=== PATIENT | female | born 1935 | race Caucasian/White ===

== ENCOUNTER 2018-02-24 18:41 | Inpatient (IN) | payer MEDICARE, BC ==
[~2018-02-24] VITALS: Ht 147.3 cm; Wt 55.3 kg
[~2018-02-24 18:41] MED LIST: ACLI400A2 INH; ASPI-496 PO; LEVO50TA5 PO; LEVO750T26 PO; LOSA100T7 PO; MAGN71.5 PO; NAPH1POW2 PO; NAPR-685 PO
[2018-02-24] MEDS ORDERED: SODIUM CHLORIDE 0.9% 1,000ML IVBOLUS ONE ×2 (19:00→19:30)
[2018-02-24] MEDS ORDERED: SODIUM CHLORIDE FLUSH 10ML SYR IVF ONE (19:00)
[2018-02-24 19:07] LABS: BASOPHILS # (AUTO) 0.03 x10^3/uL (0-0.1); BASOPHILS % (AUTO) 0 % (0-1); EOSINOPHILS # (AUTO) 0.01 x10^3/uL (0-0.4); EOSINOPHILS % (AUTO) 0 % (1-7); LYMPHOCYTES # (AUTO) 1.55 x10^3/uL (1-3.4); LYMPHOCYTES % (AUTO) 10 % (22-44); MD NO; MEAN CORPUSCULAR HGB CONC 33.3 g/dL (32.4-35.8); MEAN CORPUSCULAR VOLUME 93.1 fL (80-100); MONOCYTES # (AUTO) 0.14 x10^3/uL (0.2-0.8); MONOCYTES % (AUTO) 1 % (2-9); NEUTROPHILS # (AUTO) 13.32 x10^3/uL (1.8-6.8); NEUTROPHILS % (AUTO) 89 % (42-75); PLATELET COUNT 226 x10^3/uL (130-400); RED BLOOD COUNT 5.83 x10^6/uL (3.82-5.3)
[2018-02-24 19:20] LABS: ALANINE AMINOTRANSFERASE 19 U/L (12-78); ANION GAP 16 mmol/L (5-15); CALCIUM 10.8 mg/dL (8.5-10.1); CHLORIDE 98 mmol/L (98-107); CREATININE 1.76 mg/dL (0.55-1.02)
[2018-02-24 19:22] LABS: ALKALINE PHOSPHATASE 74 U/L (45-117); BILIRUBIN,TOTAL 0.7 mg/dL (0.2-1.0); TOTAL PROTEIN 9.3 g/dL (6.4-8.2)
[2018-02-24 19:33] LABS: TROPONIN I < 0.015 ng/mL (0.000-0.045)
[2018-02-24] MEDS ORDERED: OMNIPAQUE 350 MG/ML, 100ML BOTTLE ONE (19:59)
[2018-02-24 20:34] LABS: MICROSCOPIC NOT IND
[2018-02-24 20:37] LABS: CULTURE INDICATED? NO
[2018-02-24] MEDS ORDERED: POTASSIUM CHLORIDE 20 MEQ in SODIUM CHLORIDE 0.9% 1,000 ML IV ONE (20:44)
[2018-02-24] MEDS ORDERED: MORPHINE SULFATE 4 MG/ML, 1ML IVPush PRN (21:00)
[2018-02-24] MEDS ORDERED: MIDAZOLAM 1 MG/ML, 2ML ONE ×2 (21:07→22:52)
[2018-02-24] MEDS ORDERED: FENTANYL PF 250 MCG/5ML ONE (21:07)
[2018-02-24] MEDS ORDERED: LIDOCAINE-MPF 2% ,5ML ONE (21:08)
[2018-02-24] MEDS ORDERED: PROPOFOL 10 MG/ML, 20ML ONE (21:08)
[2018-02-24] MEDS ORDERED: ROCURONIUM 10MG/ML,5ML ONE (21:09)
[2018-02-24] MEDS ORDERED: CEFOTETAN PMX 2GM/50ML 50 ML ONE (21:10)
[2018-02-24] MEDS ORDERED: DEXAMETHASONE 4 MG/ML, 1ML ONE ×2 (21:10)
[2018-02-24] MEDS ORDERED: METOPROLOL 1 MG/ML, 5ML ONE (21:25)
[2018-02-24] MEDS ORDERED: ONDANSETRON 2MG/ML, 2ML ONE (21:25)
[2018-02-24] MEDS ORDERED: SUGAMMADEX 200 MG/2 ML IVPush ONE (22:20)
[2018-02-24] MEDS ORDERED: MEPERIDINE/PF 25MG/0.5ML IVPush PRN (22:30)
[2018-02-24] MEDS ORDERED: HYDROmorphone 1 MG/ML, 1ML IV PRN (22:30)
[2018-02-24] MEDS ORDERED: FENTANYL PF 100 MCG/2ML IV PRN (22:30)
[2018-02-24] MEDS ORDERED: PROMETHAZINE 25 MG/ML, 1ML IV PRN (22:30)
[2018-02-24] MEDS ORDERED: OXYcodone 5 MG/5 ML ORAL.SOL UDC PO PRN (22:30)
[2018-02-24] MEDS ORDERED: hydrALAzine 20 MG/ML, 1ML IV PRN (22:30)
[2018-02-24] MEDS ORDERED: LABETALOL 5MG/ML, 20ML IV PRN (22:30)
[2018-02-24] MEDS ORDERED: ALBUTEROL SULFATE 2.5 MG/3 ML NPPB PRN (22:30)
[2018-02-24] MEDS ORDERED: HALOPERIDOL 5 MG/ML IV PRN (22:30)
[2018-02-24] MEDS ORDERED: LACTATED RINGERS 1,000 ML IV SCH (23:45)
[2018-02-24] MEDS ORDERED: MIDAZOLAM HCL 25 MG in SODIUM CHLORIDE 0.9% 245 ML IV PRN (23:45)
[2018-02-24] MEDS ORDERED: ONDANSETRON 2MG/ML, 2ML IV PRN (23:45)
[2018-02-24] MEDS ORDERED: SODIUM CHLORIDE 0.9%, 500ML IV PRN (23:45)
[2018-02-24] MEDS ORDERED: morphine SULFATE 10 MG/ML, 1ML IV PRN (23:45)
[2018-02-24] MEDS ORDERED: FENTANYL PF 2,500 MCG in SODIUM CHLORIDE 0.9% 200 ML IV PRN (23:45)
[2018-02-25] MEDS ORDERED: VECURONIUM 50 MG in SODIUM CHLORIDE 0.9% 250 ML IV PRN (01:30)
[2018-02-25] MEDS ORDERED: MIDAZOLAM HCL 25 MG in SODIUM CHLORIDE 0.9% 245 ML IV PRN (01:30)
[2018-02-25] MEDS ORDERED: FENTANYL PF 2,500 MCG in SODIUM CHLORIDE 0.9% 200 ML IV PRN (01:30)
[2018-02-25] MEDS ORDERED: VECURONIUM 10 MG IVPush ONE (01:30)
[2018-02-25] MEDS ORDERED: VECURONIUM 10 MG ONE (01:32)
[2018-02-25] MEDS ORDERED: SODIUM BICARB 8.4%, 50ML SYRINGE ONE ×2 (01:55→03:15)
[2018-02-25] MEDS ORDERED: ALBUTEROL/IPRATROPIUM 2.5MG/0.5MG, 3 ML ONE (01:56)
[2018-02-25] MEDS ORDERED: SODIUM BICARBONATE 1 MEQ/ML, 50ML VIAL IVPush ONE (02:00)
[2018-02-25] MEDS ORDERED: SODIUM CHLORIDE 0.9% 1,000ML IVBOLUS ONE ×2 (02:00→04:30)
[2018-02-25] MEDS ORDERED: PROPOFOL 100 ML IV ONE (02:33)
[2018-02-25] MEDS: NOREPINEPHRINE 4 MG in SODIUM CHLORIDE 0.9% 246 ML IV PRN ×3 (02:41→21:02)
[2018-02-25] MEDS ORDERED: PROPOFOL 100 ML IV PRN ×3 (02:41→03:00)
[2018-02-25] MEDS ORDERED: NOREPINEPHRINE 4 MG in SODIUM CHLORIDE 0.9% 246 ML IV PRN (02:41)
[2018-02-25] MEDS ORDERED: DEXTROSE 4 GM TAB.CHEW PO PRN (03:00)
[2018-02-25] MEDS: INSULIN LISPRO 100 UNITS/ML, PEN SQ-INSULIN SCH ×4 (03:00→23:00)
[2018-02-25] MEDS ORDERED: LIDOCAINE-MPF 1%, 2ML ENDO PRN ×2 (03:00→09:00)
[2018-02-25] MEDS ORDERED: SENNOSIDES 8.8 MG/5 ML ORAL SOL NG PRN (03:00)
[2018-02-25] MEDS ORDERED: SODIUM CHLORIDE 0.9% 1,000ML IV SCH (03:00)
[2018-02-25] MEDS ORDERED: GLUCAGON 1 MG IM PRN (03:00)
[2018-02-25] MEDS ORDERED: DEXTROSE 50%, 50ML SYRINGE IVPush PRN (03:00)
[2018-02-25] MEDS ORDERED: PHARMACY MAY ADJ FOR RENAL FX MC SCH (03:00)
[2018-02-25] MEDS ORDERED: LACTULOSE 20 GM/30 ML UDC NG PRN (03:00)
[2018-02-25] MEDS ORDERED: BISACODYL 10 MG SUPP PR PRN (03:00)
[2018-02-25] MEDS: ALBUTEROL/IPRATROPIUM 2.5MG/0.5MG, 3 ML INLINE SCH ×6 (03:00→22:12)
[2018-02-25] MEDS ORDERED: SENNA/DOCUSATE TABLET NG PRN (03:00)
[2018-02-25] MEDS ORDERED: SODIUM BICARB 8.4%, 50ML SYRINGE IVPush ONE (03:30)
[2018-02-25 04:00] VITALS: BP 96/68
[2018-02-25] MEDS: SODIUM BICARBONATE 8.4% 150 MEQ in DEXTROSE 5% 1,000 ML IV SCH ×2 (04:14→11:15)
[2018-02-25] MEDS: FENTANYL PF 100 MCG/2ML IVPush PRN ×3 (04:15→20:02)
[2018-02-25] MEDS: FAMOTIDINE 20 MG/2 ML IV SCH ×2 (04:30→15:08)
[2018-02-25] MEDS: PIPERACILLIN/TAZO/PMX 3.375GM 50 ML IV SCH ×4 (05:31→23:07)
[2018-02-25] MEDS ORDERED: VASOPRESSIN 100 UNIT in SODIUM CHLORIDE 0.9% 495 ML IV PRN (06:00)
[2018-02-25] MEDS ORDERED: MIDAZOLAM 1 MG/ML, 5ML ONE (07:41)
[2018-02-25] MEDS: SODIUM CHLORIDE FLUSH 10ML SYR IVF SCH ×2 (09:41→21:02)
[2018-02-25 10:13] LABS: MEAN CORPUSCULAR HEMOGLOBIN 31.5 pg (27.0-34.8); MEAN CORPUSCULAR HGB CONC 33.6 g/dL (32.4-35.8); MEAN CORPUSCULAR VOLUME 93.8 fL (80-100); MEAN PLATELET VOLUME 9.3 fL (7.4-10.4); PLATELET COUNT 135 x10^3/uL (130-400); RED BLOOD COUNT 4.46 x10^6/uL (3.82-5.3); RED CELL DISTRIBUTION WIDTH 14.1 % (9.6-15.2)
[2018-02-25 10:17] VITALS: BP 143/67
[2018-02-25 10:22] LABS: ALBUMIN 1.9 g/dL (3.4-5.0); ANION GAP 16 mmol/L (5-15); CALCIUM 7.1 mg/dL (8.5-10.1); CHLORIDE 107 mmol/L (98-107)
[2018-02-25 10:23] LABS: CREATININE 1.36 mg/dL (0.55-1.02)
[2018-02-25 10:46] LABS: MD YES
[2018-02-25 10:49] LABS: BAND#(MANUAL) 3.88 x10^3/uL; BANDS%(MANUAL) 31 % (0-7); LYMPH#(MANUAL) 0.75 x10^3/uL (1-3.4); LYMPHS% (MANUAL) 6 % (22-44); METAMYELOCYTES# (MANUAL) 0.25 x10^3/uL (0-0); METAMYELOCYTES% (MANUAL) 2 % (0-1)
[2018-02-25 10:52] LABS: <RBC MORPHOLOGY> NORMAL; TOXIC GRAN 1+
[2018-02-25 10:53] LABS: <PLATELET ESTIMATE> ADEQUATE; <PLT MORPHOLOGY> NORMAL PLT MORPH; PMNS WITH VACUOLES 1+
[2018-02-25 10:54] LABS: MONOS#(MANUAL) 0.38 x10^3/uL (0.3-2.7); MONOS% (MANUAL) 3 % (2-9); MYELOCYTES# (MANUAL) 0.13 x10^3/uL (0-0); MYELOCYTES% (MANUAL) 1 % (0-0); SEG#(MANUAL) 7.13 x10^3/uL (1.8-6.8); SEGS% (MANUAL) 57 % (42-75)
[2018-02-25 13:29] LABS: ANION GAP 12 mmol/L (5-15); CHLORIDE 104 mmol/L (98-107); CREATININE 1.35 mg/dL (0.55-1.02)
[2018-02-25 13:45] LABS: CALCIUM 6.6 mg/dL (8.5-10.1)
[2018-02-25] MEDS ORDERED: POTASSIUM CHLORIDE PMX 100 ML IV ONE (15:00)
[2018-02-25] MEDS ORDERED: MAGNESIUM SULFATE PMX 4GM/100M 100 ML IV ONE (15:00)
[2018-02-25] MEDS: SODIUM CHLORIDE 0.45% 1,000 ML IV SCH (15:08)
[2018-02-25] MEDS: ENOXAPARIN 30 MG/0.3 ML SQ SCH (17:38)
[2018-02-25] MEDS ORDERED: ENOXAPARIN 40 MG/0.4 ML SQ SCH (18:00)
[2018-02-25] MEDS ORDERED: SODIUM CHLORIDE 0.9%, 250ML IVBOLUS ONE (19:30)
[2018-02-25 21:30] LABS: ALANINE AMINOTRANSFERASE 15 U/L (12-78); ANION GAP 12 mmol/L (5-15); CALCIUM 6.7 mg/dL (8.5-10.1); CHLORIDE 103 mmol/L (98-107); CREATININE 1.33 mg/dL (0.55-1.02)
[2018-02-25 21:32] LABS: ALKALINE PHOSPHATASE 31 U/L (45-117); BILIRUBIN,TOTAL 0.4 mg/dL (0.2-1.0); TOTAL PROTEIN 5.2 g/dL (6.4-8.2)
[2018-02-25] MEDS ORDERED: POTASSIUM PHOSPHATE 30 MEQ in SODIUM CHLORIDE 0.9% 500 ML IV ONE (22:00)
[2018-02-26] MEDS ORDERED: SODIUM CHLORIDE 0.9%, 250ML IVBOLUS ONE (00:30)
[2018-02-26] MEDS: SODIUM CHLORIDE 0.45% 1,000 ML IV SCH (00:37)
[2018-02-26] MEDS: FENTANYL PF 100 MCG/2ML IVPush PRN ×4 (01:41→19:30)
[2018-02-26] MEDS: ALBUTEROL/IPRATROPIUM 2.5MG/0.5MG, 3 ML INLINE SCH ×6 (02:51→23:00)
[2018-02-26 04:00] VITALS: BP 111/49
[2018-02-26] MEDS: FAMOTIDINE 20 MG/2 ML IV SCH ×2 (04:01→15:29)
[2018-02-26 04:33] LABS: MEAN CORPUSCULAR HEMOGLOBIN 30.8 pg (27.0-34.8); MEAN CORPUSCULAR HGB CONC 33.4 g/dL (32.4-35.8); MEAN CORPUSCULAR VOLUME 92.1 fL (80-100); MEAN PLATELET VOLUME 9.2 fL (7.4-10.4); PLATELET COUNT 133 x10^3/uL (130-400); RED BLOOD COUNT 3.82 x10^6/uL (3.82-5.3); RED CELL DISTRIBUTION WIDTH 14.2 % (9.6-15.2)
[2018-02-26 04:45] LABS: CHLORIDE 103 mmol/L (98-107)
[2018-02-26 04:53] LABS: ALANINE AMINOTRANSFERASE 16 U/L (12-78); ALBUMIN 1.8 g/dL (3.4-5.0); ALKALINE PHOSPHATASE 36 U/L (45-117); ANION GAP 11 mmol/L (5-15); BILIRUBIN,TOTAL 0.5 mg/dL (0.2-1.0); CALCIUM 6.4 mg/dL (8.5-10.1); CREATININE 1.15 mg/dL (0.55-1.02)
[2018-02-26] MEDS: INSULIN LISPRO 100 UNITS/ML, PEN SQ-INSULIN SCH ×4 (05:00→23:01)
[2018-02-26 05:10] LABS: MD YES
[2018-02-26 05:12] LABS: BAND#(MANUAL) 5.01 x10^3/uL; BANDS%(MANUAL) 28 % (0-7); LYMPH#(MANUAL) 0.54 x10^3/uL (1-3.4); LYMPHS% (MANUAL) 3 % (22-44); METAMYELOCYTES# (MANUAL) 0.18 x10^3/uL (0-0); METAMYELOCYTES% (MANUAL) 1 % (0-1); SEG#(MANUAL) 12.17 x10^3/uL (1.8-6.8); SEGS% (MANUAL) 68 % (42-75)
[2018-02-26 05:13] LABS: <PLATELET ESTIMATE> ADEQUATE; <PLT MORPHOLOGY> NORMAL PLT MORPH; <RBC MORPHOLOGY> NORMAL
[2018-02-26] MEDS: PIPERACILLIN/TAZO/PMX 3.375GM 50 ML IV SCH ×4 (05:54→23:02)
[2018-02-26] MEDS ORDERED: FUROSEMIDE 40 MG/4 ML ONE (08:58)
[2018-02-26] MEDS: SODIUM CHLORIDE FLUSH 10ML SYR IVF SCH ×2 (09:06→20:21)
[2018-02-26] MEDS ORDERED: FUROSEMIDE 40 MG/4 ML IV ONE (09:30)
[2018-02-26] MEDS: ENOXAPARIN 30 MG/0.3 ML SQ SCH (17:07)
[2018-02-27] MEDS: FENTANYL PF 100 MCG/2ML IVPush PRN ×3 (01:28→20:47)
[2018-02-27] MEDS: ALBUTEROL/IPRATROPIUM 2.5MG/0.5MG, 3 ML INLINE SCH ×6 (03:00→23:00)
[2018-02-27 04:36] VITALS: BP 116/58
[2018-02-27] MEDS: PIPERACILLIN/TAZO/PMX 3.375GM 50 ML IV SCH ×4 (04:46→23:55)
[2018-02-27] MEDS: INSULIN LISPRO 100 UNITS/ML, PEN SQ-INSULIN SCH ×4 (04:46→23:00)
[2018-02-27] MEDS: FAMOTIDINE 20 MG/2 ML IV SCH (04:46)
[2018-02-27 05:02] LABS: ANION GAP 13 mmol/L (5-15); CALCIUM 6.8 mg/dL (8.5-10.1); CHLORIDE 101 mmol/L (98-107)
[2018-02-27 05:03] LABS: CREATININE 1.23 mg/dL (0.55-1.02)
[2018-02-27 05:09] LABS: MEAN CORPUSCULAR HGB CONC 33.6 g/dL (32.4-35.8); MEAN CORPUSCULAR VOLUME 92.3 fL (80-100); MEAN PLATELET VOLUME 10.1 fL (7.4-10.4); PLATELET COUNT 119 x10^3/uL (130-400); RED BLOOD COUNT 3.45 x10^6/uL (3.82-5.3); RED CELL DISTRIBUTION WIDTH 14.1 % (9.6-15.2)
[2018-02-27] MEDS ORDERED: POTASSIUM CHLORIDE 40 MEQ in SODIUM CHLORIDE 0.9% 100 ML IV ONE (05:30)
[2018-02-27 05:45] LABS: MD YES
[2018-02-27 05:47] LABS: BAND#(MANUAL) 1.62 x10^3/uL; BANDS%(MANUAL) 11 % (0-7); LYMPH#(MANUAL) 0.88 x10^3/uL (1-3.4); LYMPHS% (MANUAL) 6 % (22-44); SEGS% (MANUAL) 83 % (42-75)
[2018-02-27 05:48] LABS: <PLATELET ESTIMATE> DECREASED; <PLT MORPHOLOGY> NORMAL PLT MORPH; <RBC MORPHOLOGY> NORMAL; TOXIC GRAN 1+
[2018-02-27] MEDS ORDERED: POTASSIUM CHLORIDE 10% 40 MEQ/30 ML UDC ONE (08:46)
[2018-02-27] MEDS: SODIUM CHLORIDE FLUSH 10ML SYR IVF SCH ×2 (08:52→23:55)
[2018-02-27] MEDS: PANTOPRAZOLE 40 MG IV IVPush SCH (08:53)
[2018-02-27] MEDS ORDERED: POTASSIUM CHLORIDE 10% 40 MEQ/30 ML UDC PO ONE (09:00)
[2018-02-27 11:17] LABS: HIT RESULT NEGATIVE (NEGATIVE)
[2018-02-27] MEDS: ENOXAPARIN 30 MG/0.3 ML SQ SCH (16:30)
[2018-02-28] MEDS: ALBUTEROL/IPRATROPIUM 2.5MG/0.5MG, 3 ML INLINE SCH ×6 (03:00→21:47)
[2018-02-28] MEDS: FENTANYL PF 100 MCG/2ML IVPush PRN ×2 (03:27→23:52)
[2018-02-28 04:00] VITALS: BP 110/54
[2018-02-28 04:42] LABS: ANION GAP 11 mmol/L (5-15); CALCIUM 7.6 mg/dL (8.5-10.1); CHLORIDE 105 mmol/L (98-107); CREATININE 0.94 mg/dL (0.55-1.02); TRIGLYCERIDES 153 mg/dL (50-200)
[2018-02-28 04:44] LABS: MEAN CORPUSCULAR HGB CONC 33.9 g/dL (32.4-35.8); MEAN CORPUSCULAR VOLUME 91.5 fL (80-100); MEAN PLATELET VOLUME 10.1 fL (7.4-10.4); PLATELET COUNT 116 x10^3/uL (130-400); RED BLOOD COUNT 3.25 x10^6/uL (3.82-5.3); RED CELL DISTRIBUTION WIDTH 14.4 % (9.6-15.2)
[2018-02-28] MEDS: INSULIN LISPRO 100 UNITS/ML, PEN SQ-INSULIN SCH ×4 (05:00→23:17)
[2018-02-28] MEDS ORDERED: FAMOTIDINE 20 MG/2 ML IV SCH (05:00)
[2018-02-28] MEDS: PIPERACILLIN/TAZO/PMX 3.375GM 50 ML IV SCH ×4 (05:35→23:14)
[2018-02-28 05:41] LABS: MD YES
[2018-02-28 05:42] LABS: BAND#(MANUAL) 0.76 x10^3/uL; BANDS%(MANUAL) 6 % (0-7)
[2018-02-28 05:43] LABS: LYMPH#(MANUAL) 1.26 x10^3/uL (1-3.4); LYMPHS% (MANUAL) 10 % (22-44); MONOS#(MANUAL) 0.38 x10^3/uL (0.3-2.7); MONOS% (MANUAL) 3 % (2-9); SEG#(MANUAL) 10.21 x10^3/uL (1.8-6.8); SEGS% (MANUAL) 81 % (42-75)
[2018-02-28 05:44] LABS: <PLATELET ESTIMATE> DECREASED; <PLT MORPHOLOGY> NORMAL PLT MORPH; <RBC MORPHOLOGY> NORMAL
[2018-02-28] MEDS: PANTOPRAZOLE 40 MG IV IVPush SCH (07:53)
[2018-02-28] MEDS: SODIUM CHLORIDE FLUSH 10ML SYR IVF SCH ×2 (07:54→21:00)
[2018-02-28] MEDS: FUROSEMIDE 20 MG/2 ML IV SCH ×2 (10:15→21:20)
[2018-02-28] MEDS: POTASSIUM CHLORIDE 10% 40 MEQ/30 ML UDC PO SCH ×2 (10:15→21:19)
[2018-02-28] MEDS: ACETAMINOPHEN 650 MG/20.3 ML UDC PO PRN (15:47)
[2018-02-28] MEDS: ENOXAPARIN 30 MG/0.3 ML SQ SCH (17:21)
[2018-03-01] MEDS: ALBUTEROL/IPRATROPIUM 2.5MG/0.5MG, 3 ML INLINE SCH ×2 (02:02→06:45)
[2018-03-01 04:00] VITALS: BP 145/70
[2018-03-01 04:53] LABS: MEAN CORPUSCULAR HEMOGLOBIN 31.5 pg (27.0-34.8); MEAN CORPUSCULAR VOLUME 92.7 fL (80-100); MEAN PLATELET VOLUME 9.2 fL (7.4-10.4); PLATELET COUNT 118 x10^3/uL (130-400); RED BLOOD COUNT 3.16 x10^6/uL (3.82-5.3); RED CELL DISTRIBUTION WIDTH 14.4 % (9.6-15.2)
[2018-03-01 04:58] LABS: ANION GAP 6 mmol/L (5-15); CALCIUM 7.7 mg/dL (8.5-10.1); CHLORIDE 109 mmol/L (98-107); CREATININE 0.86 mg/dL (0.55-1.02)
[2018-03-01] MEDS: INSULIN LISPRO 100 UNITS/ML, PEN SQ-INSULIN SCH ×4 (05:20→23:00)
[2018-03-01] MEDS: PIPERACILLIN/TAZO/PMX 3.375GM 50 ML IV SCH ×4 (05:20→23:12)
[2018-03-01 05:28] LABS: BASOPHILS # (AUTO) 0.02 x10^3/uL (0-0.1); BASOPHILS % (AUTO) 0 % (0-1); EOSINOPHILS # (AUTO) 0.03 x10^3/uL (0-0.4); EOSINOPHILS % (AUTO) 0 % (1-7); LYMPHOCYTES # (AUTO) 0.85 x10^3/uL (1-3.4); LYMPHOCYTES % (AUTO) 10 % (22-44); MD SCAN; MONOCYTES % (AUTO) 6 % (2-9); NEUTROPHILS # (AUTO) 7.54 x10^3/uL (1.8-6.8); NEUTROPHILS % (AUTO) 84 % (42-75)
[2018-03-01 09:10] LABS: FIO2 40 %
[2018-03-01] MEDS: SODIUM CHLORIDE FLUSH 10ML SYR IVF SCH ×2 (09:21→21:48)
[2018-03-01] MEDS: FUROSEMIDE 20 MG/2 ML IV SCH ×2 (09:22→21:48)
[2018-03-01] MEDS: POTASSIUM CHLORIDE 10% 40 MEQ/30 ML UDC PO SCH ×2 (09:22→21:48)
[2018-03-01] MEDS: PANTOPRAZOLE 40 MG IV IVPush SCH (09:22)
[2018-03-01] MEDS: ENOXAPARIN 40 MG/0.4 ML SQ SCH (16:59)
[2018-03-02] MEDS: ACETAMINOPHEN 650 MG/20.3 ML UDC PO PRN ×2 (01:48→21:06)
[2018-03-02 04:00] VITALS: BP 92/46
[2018-03-02] MEDS: PIPERACILLIN/TAZO/PMX 3.375GM 50 ML IV SCH ×4 (04:40→23:20)
[2018-03-02] MEDS: INSULIN LISPRO 100 UNITS/ML, PEN SQ-INSULIN SCH ×4 (04:40→23:21)
[2018-03-02 04:42] LABS: MEAN CORPUSCULAR HEMOGLOBIN 30.9 pg (27.0-34.8); MEAN CORPUSCULAR HGB CONC 33.3 g/dL (32.4-35.8); MEAN CORPUSCULAR VOLUME 92.8 fL (80-100); MEAN PLATELET VOLUME 9.3 fL (7.4-10.4); PLATELET COUNT 145 x10^3/uL (130-400); RED BLOOD COUNT 3.11 x10^6/uL (3.82-5.3); RED CELL DISTRIBUTION WIDTH 14.6 % (9.6-15.2)
[2018-03-02 04:55] LABS: ANION GAP 9 mmol/L (5-15); CALCIUM 7.9 mg/dL (8.5-10.1); CHLORIDE 108 mmol/L (98-107); CREATININE 0.81 mg/dL (0.55-1.02)
[2018-03-02] MEDS: FENTANYL PF 100 MCG/2ML IVPush PRN ×2 (05:05→21:18)
[2018-03-02 05:39] LABS: MD YES
[2018-03-02 05:46] LABS: <PLATELET ESTIMATE> ADEQUATE; <RBC MORPHOLOGY> NORMAL; BAND#(MANUAL) 0.38 x10^3/uL; BANDS%(MANUAL) 4 % (0-7); EOS% (MANUAL) 1 % (1-7); LARGE PLATELETS 1+; LYMPH#(MANUAL) 1.73 x10^3/uL (1-3.4); LYMPHS% (MANUAL) 18 % (22-44); METAMYELOCYTES# (MANUAL) 0.29 x10^3/uL (0-0); METAMYELOCYTES% (MANUAL) 3 % (0-1); MONOS#(MANUAL) 0.77 x10^3/uL (0.3-2.7); MONOS% (MANUAL) 8 % (2-9); MYELOCYTES% (MANUAL) 1 % (0-0); SEG#(MANUAL) 6.24 x10^3/uL (1.8-6.8); SEGS% (MANUAL) 65 % (42-75); TOXIC GRAN 1+
[2018-03-02] MEDS ORDERED: SODIUM CHLORIDE 0.9%, 500ML IVBOLUS ONE (06:00)
[2018-03-02] MEDS ORDERED: MAGNESIUM SULFATE PMX 2GM/50ML 50 ML IVPB ONE (08:30)
[2018-03-02] MEDS ORDERED: LACTATED RINGERS 500 ML IV ONE (08:30)
[2018-03-02] MEDS: PANTOPRAZOLE 40 MG IV IVPush SCH (08:33)
[2018-03-02] MEDS: SODIUM CHLORIDE FLUSH 10ML SYR IVF SCH ×2 (08:33→21:06)
[2018-03-02] MEDS: ALBUTEROL/IPRATROPIUM 2.5MG/0.5MG, 3 ML INLINE PRN ×2 (10:04→14:42)
[2018-03-02] MEDS: ENOXAPARIN 40 MG/0.4 ML SQ SCH (16:37)
[2018-03-03 04:00] VITALS: BP 101/44
[2018-03-03 04:22] LABS: MEAN CORPUSCULAR HEMOGLOBIN 30.7 pg (27.0-34.8); MEAN CORPUSCULAR HGB CONC 33.4 g/dL (32.4-35.8); MEAN CORPUSCULAR VOLUME 91.8 fL (80-100); MEAN PLATELET VOLUME 8.6 fL (7.4-10.4); PLATELET COUNT 172 x10^3/uL (130-400); RED BLOOD COUNT 2.91 x10^6/uL (3.82-5.3); RED CELL DISTRIBUTION WIDTH 14.9 % (9.6-15.2)
[2018-03-03 04:29] LABS: MD YES
[2018-03-03 04:35] LABS: ANION GAP 8 mmol/L (5-15); CALCIUM 7.6 mg/dL (8.5-10.1); CHLORIDE 109 mmol/L (98-107); CREATININE 0.64 mg/dL (0.55-1.02); TRIGLYCERIDES 130 mg/dL (50-200)
[2018-03-03 04:39] LABS: <PLATELET ESTIMATE> ADEQUATE; <RBC MORPHOLOGY> NORMAL; BANDS%(MANUAL) 3 % (0-7); BASOS% (MANUAL) 1 % (0-1); EOS% (MANUAL) 1 % (1-7); LYMPH#(MANUAL) 1.72 x10^3/uL (1-3.4); LYMPHS% (MANUAL) 17 % (22-44); MONOS% (MANUAL) 1 % (2-9); NRBC % (MANUAL) 1 % (0-1); SEG#(MANUAL) 7.78 x10^3/uL (1.8-6.8); SEGS% (MANUAL) 77 % (42-75)
[2018-03-03 04:40] LABS: LARGE PLATELETS 1+
[2018-03-03] MEDS: INSULIN LISPRO 100 UNITS/ML, PEN SQ-INSULIN SCH ×4 (05:00→23:00)
[2018-03-03] MEDS: PIPERACILLIN/TAZO/PMX 3.375GM 50 ML IV SCH ×4 (05:15→23:24)
[2018-03-03] MEDS: PANTOPRAZOLE 40 MG IV IVPush SCH (10:09)
[2018-03-03] MEDS: SODIUM CHLORIDE FLUSH 10ML SYR IVF SCH ×2 (10:09→20:48)
[2018-03-03] MEDS: ENOXAPARIN 40 MG/0.4 ML SQ SCH (20:49)
[2018-03-03 22:16] LABS: CLOSTRIDIUM DIFFICILE ANTIGEN NEGATIVE; CLOSTRIDIUM DIFFICILE TOXIN NEGATIVE (Negative)
[2018-03-04 04:23] VITALS: BP 116/49
[2018-03-04 04:40] LABS: ANION GAP 8 mmol/L (5-15); CALCIUM 7.9 mg/dL (8.5-10.1); CHLORIDE 109 mmol/L (98-107)
[2018-03-04 04:40] LABS: BASOPHILS # (AUTO) 0.03 x10^3/uL (0-0.1); BASOPHILS % (AUTO) 0 % (0-1); EOSINOPHILS # (AUTO) 0.17 x10^3/uL (0-0.4); EOSINOPHILS % (AUTO) 2 % (1-7); LYMPHOCYTES # (AUTO) 1.45 x10^3/uL (1-3.4); LYMPHOCYTES % (AUTO) 14 % (22-44); MD NO; MEAN CORPUSCULAR HEMOGLOBIN 31.8 pg (27.0-34.8); MEAN CORPUSCULAR HGB CONC 34.1 g/dL (32.4-35.8); MEAN CORPUSCULAR VOLUME 93.1 fL (80-100); MEAN PLATELET VOLUME 8.8 fL (7.4-10.4); MONOCYTES # (AUTO) 1.21 x10^3/uL (0.2-0.8); MONOCYTES % (AUTO) 12 % (2-9); NEUTROPHILS # (AUTO) 7.49 x10^3/uL (1.8-6.8); NEUTROPHILS % (AUTO) 72 % (42-75); PLATELET COUNT 218 x10^3/uL (130-400); RED CELL DISTRIBUTION WIDTH 14.8 % (9.6-15.2)
[2018-03-04 04:41] LABS: CREATININE 0.61 mg/dL (0.55-1.02)
[2018-03-04] MEDS: PIPERACILLIN/TAZO/PMX 3.375GM 50 ML IV SCH ×3 (04:56→18:06)
[2018-03-04] MEDS: INSULIN LISPRO 100 UNITS/ML, PEN SQ-INSULIN SCH ×4 (05:00→23:00)
[2018-03-04] MEDS ORDERED: POTASSIUM CHLORIDE 20 MEQ PACKET PO ONE (10:00)
[2018-03-04] MEDS ORDERED: ALBUTEROL/IPRATROPIUM 2.5MG/0.5MG, 3 ML INLINE PRN (11:00)
[2018-03-04] MEDS ORDERED: MIDAZOLAM 1 MG/ML, 5ML ONE (12:00)
[2018-03-04] MEDS ORDERED: PROPOFOL 10 MG/ML, 100ML IV ONE (12:00)
[2018-03-04] MEDS: PANTOPRAZOLE 40 MG IV IVPush SCH (12:08)
[2018-03-04] MEDS: SODIUM CHLORIDE FLUSH 10ML SYR IVF SCH ×2 (12:08→20:52)
[2018-03-04] MEDS ORDERED: ALBUTEROL/IPRATROPIUM 2.5MG/0.5MG, 3 ML ONE (12:36)
[2018-03-04] MEDS ORDERED: RACEPINEPHRINE INH 2.25%, 0.5ML ONE (12:44)
[2018-03-04] MEDS ORDERED: FUROSEMIDE 20 MG/2 ML ONE (12:53)
[2018-03-04] MEDS ORDERED: DEXAMETHASONE 4 MG/ML, 1ML ONE (12:53)
[2018-03-04] MEDS: DEXAMETHASONE 4 MG/ML, 1ML IVPush SCH ×3 (12:58→20:52)
[2018-03-04] MEDS: ALBUTEROL/IPRATROPIUM 2.5MG/0.5MG, 3 ML NPPB SCH ×2 (13:00→15:26)
[2018-03-04] MEDS ORDERED: FUROSEMIDE 20 MG/2 ML IV ONE ×2 (13:00→19:00)
[2018-03-04] MEDS ORDERED: RACEPINEPHRINE INH 2.25%, 0.5ML NPPB PRN (15:30)
[2018-03-04] MEDS ORDERED: ALBUTEROL/IPRATROPIUM 2.5MG/0.5MG, 3 ML INLINE SCH (16:00)
[2018-03-04 16:55] LABS: ANION GAP 7 mmol/L (5-15); CALCIUM 8.4 mg/dL (8.5-10.1); CHLORIDE 107 mmol/L (98-107); CREATININE 0.62 mg/dL (0.55-1.02)
[2018-03-04] MEDS ORDERED: MIDAZOLAM 1 MG/ML, 5ML IVPush ONE (17:15)
[2018-03-04] MEDS ORDERED: SUCCINYLCHOLINE 20 MG/ML, 10ML IVPush ONE (17:15)
[2018-03-04] MEDS ORDERED: PROPOFOL 100 ML IV PRN (17:20)
[2018-03-04] MEDS ORDERED: LIDOCAINE-MPF 1%, 2ML ENDO PRN (18:00)
[2018-03-04] MEDS ORDERED: LACTULOSE 20 GM/30 ML UDC NG PRN (18:00)
[2018-03-04] MEDS ORDERED: PHARMACY MAY ADJ FOR RENAL FX MC SCH (18:00)
[2018-03-04] MEDS ORDERED: SENNOSIDES 8.8 MG/5 ML ORAL SOL NG PRN (18:00)
[2018-03-04] MEDS ORDERED: FENTANYL PF 100 MCG/2ML IVPush PRN (18:00)
[2018-03-04] MEDS ORDERED: SENNA/DOCUSATE TABLET NG PRN (18:00)
[2018-03-04] MEDS ORDERED: BISACODYL 10 MG SUPP PR PRN (18:00)
[2018-03-04] MEDS: ALBUTEROL/IPRATROPIUM 2.5MG/0.5MG, 3 ML INLINE SCH ×2 (19:10→22:26)
[2018-03-04] MEDS: FENTANYL PF 100 MCG/2ML IVPush PRN (20:50)
[2018-03-04] MEDS: ENOXAPARIN 40 MG/0.4 ML SQ SCH (20:53)
[2018-03-04] MEDS ORDERED: NOREPINEPHRINE 4 MG in SODIUM CHLORIDE 0.9% 246 ML IV PRN (22:00)
[2018-03-05] MEDS: PIPERACILLIN/TAZO/PMX 3.375GM 50 ML IV SCH ×5 (00:16→22:58)
[2018-03-05] MEDS: DEXAMETHASONE 4 MG/ML, 1ML IVPush SCH (00:18)
[2018-03-05] MEDS: ALBUTEROL/IPRATROPIUM 2.5MG/0.5MG, 3 ML INLINE SCH ×6 (02:19→23:10)
[2018-03-05 03:44] VITALS: BP 92/47
[2018-03-05 04:21] LABS: BASOPHILS # (AUTO) 0.27 x10^3/uL (0-0.1); BASOPHILS % (AUTO) 2 % (0-1); EOSINOPHILS % (AUTO) 0 % (1-7); LYMPHOCYTES # (AUTO) 0.51 x10^3/uL (1-3.4); LYMPHOCYTES % (AUTO) 5 % (22-44); MD NO; MEAN CORPUSCULAR HEMOGLOBIN 31.4 pg (27.0-34.8); MEAN CORPUSCULAR HGB CONC 33.9 g/dL (32.4-35.8); MEAN CORPUSCULAR VOLUME 92.5 fL (80-100); MEAN PLATELET VOLUME 8.5 fL (7.4-10.4); MONOCYTES # (AUTO) 0.16 x10^3/uL (0.2-0.8); MONOCYTES % (AUTO) 1 % (2-9); NEUTROPHILS # (AUTO) 10.29 x10^3/uL (1.8-6.8); NEUTROPHILS % (AUTO) 92 % (42-75); PLATELET COUNT 333 x10^3/uL (130-400); RED BLOOD COUNT 3.14 x10^6/uL (3.82-5.3); RED CELL DISTRIBUTION WIDTH 15.2 % (9.6-15.2)
[2018-03-05] MEDS: INSULIN LISPRO 100 UNITS/ML, PEN SQ-INSULIN SCH ×4 (04:22→22:58)
[2018-03-05 04:33] LABS: ALANINE AMINOTRANSFERASE 38 U/L (12-78); ALBUMIN 1.8 g/dL (3.4-5.0); ANION GAP 11 mmol/L (5-15); CALCIUM 8.3 mg/dL (8.5-10.1); CHLORIDE 108 mmol/L (98-107)
[2018-03-05 04:36] LABS: ALKALINE PHOSPHATASE 63 U/L (45-117); BILIRUBIN,TOTAL 0.4 mg/dL (0.2-1.0); TOTAL PROTEIN 6.2 g/dL (6.4-8.2)
[2018-03-05] MEDS: PANTOPRAZOLE 40 MG IV IV SCH (09:13)
[2018-03-05 09:26] LABS: TROPONIN I 0.196 ng/mL (0.000-0.045)
[2018-03-05] MEDS: methylPREDNISolone SOD SUCC 125 MG/2 ML IVPush SCH ×3 (09:32→21:09)
[2018-03-05] MEDS: SODIUM CHLORIDE FLUSH 10ML SYR IVF SCH ×2 (09:33→21:09)
[2018-03-05] MEDS ORDERED: ALBUMIN HUMAN 25% 100 ML IV SCH (14:00)
[2018-03-05] MEDS ORDERED: FUROSEMIDE 20 MG/2 ML IVPB SCH (15:30)
[2018-03-05] MEDS: ENOXAPARIN 40 MG/0.4 ML SQ SCH (21:09)
[2018-03-06] MEDS: ALBUMIN HUMAN 25% 100 ML IV SCH ×2 (01:55→15:22)
[2018-03-06] MEDS: ALBUTEROL/IPRATROPIUM 2.5MG/0.5MG, 3 ML INLINE SCH ×6 (02:15→22:15)
[2018-03-06] MEDS: FUROSEMIDE 20 MG/2 ML IVPB SCH ×2 (03:38→15:59)
[2018-03-06] MEDS: methylPREDNISolone SOD SUCC 125 MG/2 ML IVPush SCH ×4 (03:38→21:51)
[2018-03-06 04:00] VITALS: BP 96/44
[2018-03-06 04:35] LABS: ANION GAP 9 mmol/L (5-15); CALCIUM 8.1 mg/dL (8.5-10.1); CHLORIDE 108 mmol/L (98-107)
[2018-03-06 04:36] LABS: CREATININE 0.72 mg/dL (0.55-1.02); TRIGLYCERIDES 93 mg/dL (50-200)
[2018-03-06 04:43] LABS: BASOPHILS % (AUTO) 0 % (0-1); EOSINOPHILS % (AUTO) 0 % (1-7); LYMPHOCYTES # (AUTO) 0.59 x10^3/uL (1-3.4); LYMPHOCYTES % (AUTO) 7 % (22-44); MD NO; MEAN CORPUSCULAR HEMOGLOBIN 31.3 pg (27.0-34.8); MEAN CORPUSCULAR HGB CONC 33.8 g/dL (32.4-35.8); MEAN CORPUSCULAR VOLUME 92.4 fL (80-100); MEAN PLATELET VOLUME 8.6 fL (7.4-10.4); MONOCYTES # (AUTO) 0.72 x10^3/uL (0.2-0.8); MONOCYTES % (AUTO) 8 % (2-9); NEUTROPHILS # (AUTO) 7.55 x10^3/uL (1.8-6.8); NEUTROPHILS % (AUTO) 85 % (42-75); PLATELET COUNT 307 x10^3/uL (130-400); RED CELL DISTRIBUTION WIDTH 14.7 % (9.6-15.2)
[2018-03-06] MEDS ORDERED: POTASSIUM CHLORIDE 10% 40 MEQ/30 ML UDC ONE (04:56)
[2018-03-06] MEDS: PIPERACILLIN/TAZO/PMX 3.375GM 50 ML IV SCH ×4 (04:59→23:31)
[2018-03-06] MEDS: POTASSIUM CHLORIDE 20 MEQ TAB.ER.PRT PO SCH ×2 (04:59→09:44)
[2018-03-06] MEDS: INSULIN LISPRO 100 UNITS/ML, PEN SQ-INSULIN SCH ×4 (05:03→22:56)
[2018-03-06] MEDS: PANTOPRAZOLE 40 MG IV IV SCH (09:43)
[2018-03-06] MEDS: SODIUM CHLORIDE FLUSH 10ML SYR IVF SCH ×2 (09:44→20:28)
[2018-03-06 15:11] LABS: ANION GAP 12 mmol/L (5-15); CALCIUM 8.3 mg/dL (8.5-10.1); CHLORIDE 109 mmol/L (98-107); CREATININE 0.79 mg/dL (0.55-1.02)
[2018-03-06] MEDS ORDERED: POTASSIUM CHLORIDE 20 MEQ PACKET PO ONE (16:00)
[2018-03-06] MEDS: ENOXAPARIN 40 MG/0.4 ML SQ SCH (20:28)
[2018-03-07] MEDS: ALBUMIN HUMAN 25% 100 ML IV SCH ×2 (01:54→15:00)
[2018-03-07] MEDS: ALBUTEROL/IPRATROPIUM 2.5MG/0.5MG, 3 ML INLINE SCH ×2 (01:55→06:45)
[2018-03-07] MEDS: methylPREDNISolone SOD SUCC 125 MG/2 ML IVPush SCH ×4 (03:32→21:38)
[2018-03-07] MEDS: FUROSEMIDE 20 MG/2 ML IVPB SCH ×2 (03:33→16:40)
[2018-03-07 04:00] VITALS: BP 147/67
[2018-03-07 04:32] LABS: BASOPHILS # (AUTO) 0.03 x10^3/uL (0-0.1); BASOPHILS % (AUTO) 0 % (0-1); EOSINOPHILS % (AUTO) 0 % (1-7); LYMPHOCYTES # (AUTO) 0.45 x10^3/uL (1-3.4); LYMPHOCYTES % (AUTO) 5 % (22-44); MD NO; MEAN CORPUSCULAR HEMOGLOBIN 31.8 pg (27.0-34.8); MEAN CORPUSCULAR HGB CONC 34.1 g/dL (32.4-35.8); MEAN CORPUSCULAR VOLUME 93.2 fL (80-100); MEAN PLATELET VOLUME 8.6 fL (7.4-10.4); MONOCYTES # (AUTO) 0.43 x10^3/uL (0.2-0.8); MONOCYTES % (AUTO) 5 % (2-9); NEUTROPHILS # (AUTO) 8.23 x10^3/uL (1.8-6.8); NEUTROPHILS % (AUTO) 90 % (42-75); PLATELET COUNT 363 x10^3/uL (130-400); RED CELL DISTRIBUTION WIDTH 15.3 % (9.6-15.2)
[2018-03-07 04:43] LABS: ANION GAP 11 mmol/L (5-15); CALCIUM 8.8 mg/dL (8.5-10.1); CHLORIDE 107 mmol/L (98-107)
[2018-03-07 04:46] LABS: CREATININE 0.81 mg/dL (0.55-1.02); TRIGLYCERIDES 94 mg/dL (50-200)
[2018-03-07] MEDS: PIPERACILLIN/TAZO/PMX 3.375GM 50 ML IV SCH ×4 (04:56→23:30)
[2018-03-07] MEDS: INSULIN LISPRO 100 UNITS/ML, PEN SQ-INSULIN SCH ×4 (05:04→23:31)
[2018-03-07] MEDS: PANTOPRAZOLE 40 MG IV IV SCH (10:03)
[2018-03-07] MEDS: SODIUM CHLORIDE FLUSH 10ML SYR IVF SCH ×2 (10:07→21:39)
[2018-03-07] MEDS ORDERED: ALBUTEROL/IPRATROPIUM 2.5MG/0.5MG, 3 ML NPPB PRN (13:00)
[2018-03-07] MEDS: ALBUTEROL/IPRATROPIUM 2.5MG/0.5MG, 3 ML NPPB SCH ×3 (14:54→21:22)
[2018-03-07] MEDS: ENOXAPARIN 40 MG/0.4 ML SQ SCH (21:38)
[2018-03-08] MEDS: ALBUMIN HUMAN 25% 100 ML IV SCH ×2 (02:09→14:08)
[2018-03-08 04:00] VITALS: BP 131/59
[2018-03-08] MEDS: FUROSEMIDE 20 MG/2 ML IVPB SCH ×2 (04:28→15:31)
[2018-03-08] MEDS: methylPREDNISolone SOD SUCC 125 MG/2 ML IVPush SCH ×4 (04:28→21:35)
[2018-03-08 04:32] LABS: MEAN CORPUSCULAR HEMOGLOBIN 31.4 pg (27.0-34.8); MEAN CORPUSCULAR HGB CONC 34.2 g/dL (32.4-35.8); MEAN CORPUSCULAR VOLUME 91.7 fL (80-100); MEAN PLATELET VOLUME 8.5 fL (7.4-10.4); PLATELET COUNT 404 x10^3/uL (130-400); RED BLOOD COUNT 2.84 x10^6/uL (3.82-5.3); RED CELL DISTRIBUTION WIDTH 15.1 % (9.6-15.2)
[2018-03-08 04:37] LABS: ANION GAP 9 mmol/L (5-15); CALCIUM 8.3 mg/dL (8.5-10.1); CHLORIDE 104 mmol/L (98-107)
[2018-03-08 04:38] LABS: CREATININE 0.85 mg/dL (0.55-1.02)
[2018-03-08] MEDS: PIPERACILLIN/TAZO/PMX 3.375GM 50 ML IV SCH ×4 (05:17→23:17)
[2018-03-08] MEDS: INSULIN LISPRO 100 UNITS/ML, PEN SQ-INSULIN SCH ×4 (05:18→23:18)
[2018-03-08 06:14] LABS: MD MORPH REVIEW ONLY
[2018-03-08 06:15] LABS: ANISOCYTOSIS 1+; BASOPHILS # (AUTO) 0.02 x10^3/uL (0-0.1); BASOPHILS % (AUTO) 0 % (0-1); EOSINOPHILS # (AUTO) 0.06 x10^3/uL (0-0.4); EOSINOPHILS % (AUTO) 1 % (1-7); LYMPHOCYTES # (AUTO) 0.72 x10^3/uL (1-3.4); LYMPHOCYTES % (AUTO) 7 % (22-44); MONOCYTES # (AUTO) 0.38 x10^3/uL (0.2-0.8); MONOCYTES % (AUTO) 4 % (2-9); NEUTROPHILS # (AUTO) 9.86 x10^3/uL (1.8-6.8); NEUTROPHILS % (AUTO) 89 % (42-75); POLYCHROMASIA 1+
[2018-03-08 06:17] LABS: <PLATELET ESTIMATE> ADEQUATE; <PLT MORPHOLOGY> NORMAL PLT MORPH
[2018-03-08] MEDS: ALBUTEROL/IPRATROPIUM 2.5MG/0.5MG, 3 ML NPPB SCH ×5 (09:10→22:30)
[2018-03-08] MEDS: PANTOPRAZOLE 40 MG IV IV SCH (09:24)
[2018-03-08] MEDS: SODIUM CHLORIDE FLUSH 10ML SYR IVF SCH ×2 (09:25→21:36)
[2018-03-08] MEDS: ENOXAPARIN 40 MG/0.4 ML SQ SCH (21:35)
[2018-03-09] MEDS: ALBUMIN HUMAN 25% 100 ML IV SCH ×2 (01:44→13:25)
[2018-03-09] MEDS: ALBUTEROL/IPRATROPIUM 2.5MG/0.5MG, 3 ML NPPB SCH ×5 (02:00→22:05)
[2018-03-09] MEDS: methylPREDNISolone SOD SUCC 125 MG/2 ML IVPush SCH (03:38)
[2018-03-09] MEDS: FUROSEMIDE 20 MG/2 ML IVPB SCH ×2 (03:38→15:46)
[2018-03-09 04:09] VITALS: BP 139/69
[2018-03-09 04:42] LABS: BASOPHILS % (AUTO) 0 % (0-1); EOSINOPHILS % (AUTO) 0 % (1-7); LYMPHOCYTES # (AUTO) 0.78 x10^3/uL (1-3.4); LYMPHOCYTES % (AUTO) 7 % (22-44); MD NO; MEAN CORPUSCULAR HEMOGLOBIN 30.6 pg (27.0-34.8); MEAN CORPUSCULAR HGB CONC 33.1 g/dL (32.4-35.8); MEAN CORPUSCULAR VOLUME 92.2 fL (80-100); MEAN PLATELET VOLUME 8.6 fL (7.4-10.4); MONOCYTES # (AUTO) 0.51 x10^3/uL (0.2-0.8); MONOCYTES % (AUTO) 5 % (2-9); NEUTROPHILS # (AUTO) 9.78 x10^3/uL (1.8-6.8); NEUTROPHILS % (AUTO) 88 % (42-75); PLATELET COUNT 419 x10^3/uL (130-400); RED BLOOD COUNT 2.92 x10^6/uL (3.82-5.3); RED CELL DISTRIBUTION WIDTH 14.8 % (9.6-15.2)
[2018-03-09 04:55] LABS: ANION GAP 9 mmol/L (5-15); CALCIUM 8.9 mg/dL (8.5-10.1); CHLORIDE 100 mmol/L (98-107)
[2018-03-09 04:56] LABS: CREATININE 0.96 mg/dL (0.55-1.02)
[2018-03-09] MEDS: PIPERACILLIN/TAZO/PMX 3.375GM 50 ML IV SCH ×4 (05:08→23:12)
[2018-03-09] MEDS: INSULIN LISPRO 100 UNITS/ML, PEN SQ-INSULIN SCH (05:13)
[2018-03-09] MEDS: PANTOPRAZOLE 40 MG IV IV SCH (08:46)
[2018-03-09] MEDS: SODIUM CHLORIDE FLUSH 10ML SYR IVF SCH ×2 (08:47→21:33)
[2018-03-09] MEDS: INSULIN LISPRO 100 UNITS/ML, PEN MEDIUM DOSE SS SQ-INSULIN SCH ×3 (10:43→21:34)
[2018-03-09] MEDS: methylPREDNISolone SOD SUCC 40 MG/ML IVPush SCH (15:46)
[2018-03-09] MEDS: ENOXAPARIN 40 MG/0.4 ML SQ SCH (21:32)
[2018-03-10] MEDS: methylPREDNISolone SOD SUCC 40 MG/ML IVPush SCH ×3 (00:29→16:18)
[2018-03-10] MEDS: ALBUMIN HUMAN 25% 100 ML IV SCH ×2 (02:25→14:00)
[2018-03-10] MEDS: FUROSEMIDE 20 MG/2 ML IVPB SCH ×2 (03:51→16:19)
[2018-03-10 04:20] LABS: BASOPHILS # (AUTO) 0.06 x10^3/uL (0-0.1); BASOPHILS % (AUTO) 1 % (0-1); EOSINOPHILS % (AUTO) 0 % (1-7); LYMPHOCYTES # (AUTO) 0.55 x10^3/uL (1-3.4); LYMPHOCYTES % (AUTO) 5 % (22-44); MD NO; MEAN CORPUSCULAR HEMOGLOBIN 31.6 pg (27.0-34.8); MEAN CORPUSCULAR HGB CONC 33.6 g/dL (32.4-35.8); MEAN PLATELET VOLUME 8.4 fL (7.4-10.4); MONOCYTES # (AUTO) 0.32 x10^3/uL (0.2-0.8); MONOCYTES % (AUTO) 3 % (2-9); NEUTROPHILS # (AUTO) 11.07 x10^3/uL (1.8-6.8); NEUTROPHILS % (AUTO) 92 % (42-75); PLATELET COUNT 441 x10^3/uL (130-400); RED BLOOD COUNT 2.94 x10^6/uL (3.82-5.3); RED CELL DISTRIBUTION WIDTH 15.3 % (9.6-15.2)
[2018-03-10 04:30] LABS: ANION GAP 12 mmol/L (5-15); CALCIUM 8.9 mg/dL (8.5-10.1); CHLORIDE 99 mmol/L (98-107); CREATININE 0.96 mg/dL (0.55-1.02)
[2018-03-10] MEDS: PIPERACILLIN/TAZO/PMX 3.375GM 50 ML IV SCH ×3 (05:07→16:18)
[2018-03-10] MEDS: ALBUTEROL/IPRATROPIUM 2.5MG/0.5MG, 3 ML NPPB SCH ×3 (06:00→14:00)
[2018-03-10] MEDS: INSULIN LISPRO 100 UNITS/ML, PEN MEDIUM DOSE SS SQ-INSULIN SCH ×2 (07:52→11:00)
[2018-03-10] MEDS: PANTOPRAZOLE 40 MG IV IV SCH (08:34)
[2018-03-10] MEDS: SODIUM CHLORIDE FLUSH 10ML SYR IVF SCH (08:35)
[2018-03-10] MEDS ORDERED: LEVO50TA PO (16:18)
[2018-03-10] MEDS ORDERED: DEXT4TAB PO (16:22)
[2018-03-10] MEDS ORDERED: GLUC1VIA IM (16:24)
[2018-03-10] MEDS ORDERED: [UNRECOGNIZED DRUG - CODE] IV (16:25)
[2018-03-10] MEDS ORDERED: ENOX40SY4 SQ (16:27)
[2018-03-10] MEDS ORDERED: FURO10SO IV (16:27)
[2018-03-10] MEDS ORDERED: INSU100C SQ-INSULIN (16:28)
[2018-03-10] MEDS ORDERED: PANT40VI IV (16:29)
[2018-03-10] MEDS ORDERED: PIPE3.375 IV (16:30)
[2018-03-10] MEDS ORDERED: ACET325C5 PO (16:31)
[2018-03-10] MEDS ORDERED: BISA10SU54 PR (16:32)
[2018-03-10] MEDS ORDERED: ONDA4SOL2 IV (16:34)
[2018-03-10] MEDS ORDERED: SENN8.6T98 PO (16:35)
[2018-03-10] MEDS ORDERED: METH40VI IV (16:36)
== END 2018-03-10 17:59 | DRG 853 ==
LOC: ED 19:32 → EDIP 20:44 → CCU 22:58
PROVIDERS: ADMIT Surgery; ATTEND Surgery
PROC: 0DBA0ZZ Excision of Jejunum, Open Approach (ICD-10-PCS; principal; 2018-02-24 21:00)
PROC: 0B9F8ZX Drainage of Right Lower Lung Lobe, Via Natural or Artificial Opening Endoscopic, Diagnostic (ICD-10-PCS; 2018-02-25)
PROC: 02HV33Z Insertion of Infusion Device into Superior Vena Cava, Percutaneous Approach (ICD-10-PCS; 2018-02-25)
PROC: 5A1955Z Respiratory Ventilation, Greater than 96 Consecutive Hours (ICD-10-PCS; 2018-02-25)
PROC: 0BH18EZ Insertion of Endotracheal Airway into Trachea, Via Natural or Artificial Opening Endoscopic (ICD-10-PCS; 2018-02-25)
PROC: 0D9670Z Drainage of Stomach with Drainage Device, Via Natural or Artificial Opening (ICD-10-PCS; 2018-02-25)
DX: A41.9 Sepsis, unspecified organism (principal); J69.0 Pneumonitis due to inhalation of food and vomit; R65.21 Severe sepsis with septic shock; K56.2 Volvulus; J96.21 Acute and chronic respiratory failure with hypoxia; N17.0 Acute kidney failure with tubular necrosis; J98.11 Atelectasis; R73.9 Hyperglycemia, unspecified; D69.6 Thrombocytopenia, unspecified; E03.9 Hypothyroidism, unspecified; E86.0 Dehydration; N18.9 Chronic kidney disease, unspecified; I12.9 Hypertensive chronic kidney disease with stage 1 through stage 4 chronic kidney disease, or unspecified chronic kidney disease; J44.9 Chronic obstructive pulmonary disease, unspecified; K80.20 Calculus of gallbladder without cholecystitis without obstruction; Z51.5 Encounter for palliative care; I44.7 Left bundle-branch block, unspecified; M19.90 Unspecified osteoarthritis, unspecified site; Z87.440 Personal history of urinary (tract) infections; Z87.891 Personal history of nicotine dependence; Z90.710 Acquired absence of both cervix and uterus; Z99.81 Dependence on supplemental oxygen; Z90.49 Acquired absence of other specified parts of digestive tract; Z90.89 Acquired absence of other organs
CPT/HCPCS: 31624; 36415; 36600; 71045; 71250; 74022; 74177; 80048; 80053; 81003; 82040; 82330; 82533; 82803; 82947; 82962; 83605; 83690; 83735; 84100; 84132; 84295; 84478; 84484; 85014; 85018; 85025; 86022; 87015; 87040; 87070; 87077; 87081; 87102; 87116; 87186; 87205; 87206; 87324; 88112; 88305; 88307; 88312; 93005; 93306; 94002; 94003; 94150; 94640; 94660; 96372; 96374; 96375; G0378; J1100; J1650; J1940; J2250; J2405; J2543; J2704; J3010; J3480; J3490; J7070; J7120; J7620; P9047; Q9967; C9113; J0330; J1815; J2270; J2920; J2930; J3475; J7030; J7040; J7050; S0028; S0074

== ENCOUNTER → 2020-09-13 | Outpatient (CLI) | payer MEDICARE, BC ==
[~2020-09-13] MED LIST changes: +ACET325C6 PO; -ACLI400A2 INH; +ACLI400A3 INH; +BISA10SU54 PR; +DEXT4TAB PO; +ENOX40SY4 SQ; +FURO10SO IV; +GLUC1VIA5 IM; +INSU100C SQ-INSULIN; +LEVO50TA PO; +LOSA100T14 PO; -LOSA100T7 PO; +METH40VI IV; +METO10TA2 PO; +ONDA4SOL2 IV; +PANT40VI IV; +PIPE3.375 IV; +SENN8.6T98 PO; +[UNRECOGNIZED DRUG - CODE] IV
== END | disposition home or self-care (01) ==
LOC: ROC 09:40
PROVIDERS: ATTEND Radiology Radiation Oncology
DX: C79.31 Secondary malignant neoplasm of brain (principal); C34.90 Malignant neoplasm of unspecified part of unspecified bronchus or lung; C78.7 Secondary malignant neoplasm of liver and intrahepatic bile duct; J44.9 Chronic obstructive pulmonary disease, unspecified; J96.10 Chronic respiratory failure, unspecified whether with hypoxia or hypercapnia; I11.0 Hypertensive heart disease with heart failure; I50.30 Unspecified diastolic (congestive) heart failure; E03.9 Hypothyroidism, unspecified; Z87.891 Personal history of nicotine dependence; Z90.49 Acquired absence of other specified parts of digestive tract; Z90.710 Acquired absence of both cervix and uterus
CPT/HCPCS: G0463

== ENCOUNTER → 2020-11-09 | Outpatient (CLI) | payer MEDICARE, BC | END | disposition home or self-care (01) | LOC: CFH 08:38 | PROVIDERS: ATTEND Internal Medicine Hematology & Oncology | DX: C79.31 Secondary malignant neoplasm of brain (principal); C34.11 Malignant neoplasm of upper lobe, right bronchus or lung; M81.0 Age-related osteoporosis without current pathological fracture; M85.89 Other specified disorders of bone density and structure, multiple sites; Z51.12 Encounter for antineoplastic immunotherapy; Z79.899 Other long term (current) drug therapy | CPT/HCPCS: 77080 ==